=== PATIENT | female | born 1935 | race Two or more races ===

== ENCOUNTER 2017-11-25 05:35 | Day surgery (SDC) | payer OTHER ==
[~2017-11-25 05:35] MED LIST: BICITRA PO; ZESTRIL2.5 MG PO; ZOCOR20 MG PO
== END 2017-11-25 09:50 | disposition home or self-care (01) ==
LOC: AMB-ENDOS 05:35
DX: D12.3 Benign neoplasm of transverse colon (principal); K63.5 Polyp of colon; Z85.048 Personal history of other malignant neoplasm of rectum, rectosigmoid junction, and anus; Z93.3 Colostomy status